=== PATIENT | female | born 2000 | race African-American/Black ===

== ENCOUNTER 2023-10-23 08:41 | Emergency (ER) | payer SELFPAY ==
[~2023-10-23] VITALS: Ht 157.5 cm; Wt 72.6 kg
[~2023-10-23 08:41] MED LIST: CEFUROXIME500 MG PO
[2023-10-23 08:45] VITALS: PULSE 93; RESP 16; TEMP 98.4; O2SAT 99
[2023-10-23] MEDS ORDERED: CEFUROXIME500 MG PO (09:40)
== END 2023-10-23 10:05 | disposition home or self-care (01) ==
LOC: FSED 08:44
DX: R30.0 Dysuria (principal); N39.0 Urinary tract infection, site not specified
CPT/HCPCS: 81003; 81025; 99283